=== PATIENT | female | born 1995 | race Caucasian/White ===

== ENCOUNTER 2022-06-12 15:06 | Emergency (ER) | payer BC ==
[2022-06-12 15:43] VITALS: BP 105/66; PULSE 92; RESP 18; TEMP 98.1; BMI 24.7
== END 2022-06-12 18:06 | disposition left against medical advice (07) ==
LOC: JER 15:06
DX: F19.939 Other psychoactive substance use, unspecified with withdrawal, unspecified (principal)
CPT/HCPCS: 99281-25